=== PATIENT | female | born 1965 | race Caucasian/White ===

== ENCOUNTER 2016-10-09 10:04 | Inpatient (IN) | payer OTHER ==
[~2016-10-09] VITALS: Ht 160 cm; Wt 97.3 kg
[~2016-10-09 10:04] MED LIST: ALBU0.086 INH; CYCL1PAK PO
[2016-10-28] MEDS ORDERED: HYDR-3580 PO (12:11)
[2016-10-28] MEDS ORDERED: VENTAER INH (12:15)
[2016-10-28] MEDS ORDERED: ASPI1TAB69 PO (12:15)
[2016-11-08] MEDS ORDERED: OMEP20TA PO (16:10)
[2016-11-08] MEDS ORDERED: CETI1TAB21 PO (16:10)
[2016-11-08] MEDS ORDERED: PSEU30TA2 PO (16:10)
[2016-11-08] MEDS ORDERED: CALC1TAB12 PO (16:10)
[2016-11-12] MEDS ORDERED: LACTATED RINGER'S 1000 ML IV SCH (06:00)
[2016-11-12] MEDS ORDERED: ceFAZolin 2 GM PREMIX 50 ML IV SCH (06:00)
[2016-11-12] MEDS ORDERED: SODIUM CHLORID 0.9% 500 ML IV SCH (06:00)
[2016-11-12] MEDS ORDERED: INSULIN HUMAN REGULAR 1,000 UNITS/10 ML VIAL SQ PRN (06:00)
[2016-11-12] MEDS ORDERED: VANCOMYCIN 1000 MG/NS 250 ML (for <70 kg) IV SCH ×2 (06:00)
[2016-11-12] MEDS ORDERED: METOPROLOL TARTRATE 25 MG TAB PO PRN (06:00)
[2016-11-12] MEDS: CHLORHEXIDINE GLUCONATE 4% SOLN 120 ML BTL TOP SCH (06:00)
[2016-11-12 06:01] VITALS: BP 142/89; PULSE 68; RESP 18; TEMP 98; O2SAT 97
[2016-11-12] MEDS ORDERED: ACETAMINOPHEN 1000 MG/100 ML VIAL IV ONE (06:44)
[2016-11-12] MEDS ORDERED: FAMOTIDINE 20 MG/2 ML VIAL ONE (06:44)
[2016-11-12] MEDS ORDERED: MIDAZOLAM HCL 2 MG/2 ML VIAL ONE (06:44)
[2016-11-12] MEDS ORDERED: fentaNYL CITRATE 250 MCG/5 ML AMP ONE (06:45)
[2016-11-12] MEDS ORDERED: METOCLOPRAMIDE HCL 10 MG/2 ML VIAL ONE (06:45)
[2016-11-12] MEDS ORDERED: DEXAMETHASONE SOD PHOS 4 MG/ML VIAL ONE (06:45)
[2016-11-12] MEDS: SODIUM CHLORIDE 0.9% IV SCH ×2 (07:00→08:32)
[2016-11-12] MEDS: EXPAREL PERI-ARTICULAR INJECTION (TOTAL VOL. 60 ML) P-ARTICULR SCH ×4 (07:00→08:47)
[2016-11-12] MEDS: TRANEXAMIC ACID IV SCH ×2 (07:00→08:32)
[2016-11-12] MEDS ORDERED: GENTAMICIN SULFATE 80 MG/2 ML VIAL IRRIGATION ONE (08:47)
[2016-11-12] MEDS ORDERED: NALOXONE HCL 0.4 MG/ML AMP IV PRN (10:30)
[2016-11-12] MEDS ORDERED: ONDANSETRON HCL 4 MG/2 ML VIAL IVP PRN (10:30)
[2016-11-12] MEDS ORDERED: SODIUM CHLORIDE 0.9% FLUSH 5 ML FLUSH IVF PRN (10:30)
[2016-11-12] MEDS ORDERED: ACETAMINOPHEN/HYDROcodone 325 MG/10 MG TAB PO PRN (10:30)
[2016-11-12] MEDS ORDERED: MORPHINE SULFATE 4 MG/ML INJ IV PUSH PRN (10:30)
[2016-11-12] MEDS ORDERED: diphenhydrAMINE HCL 25 MG CAP PO PRN (10:30)
--- NOTE | 2016-11-12 10:34 | PD.OP ---
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 Surgeon: Melquiades Villalpando Material Damage Appraiser(s): ZHEN Garcia PA-C The surgical procedure was assisted by my physician assistant loan processor. My P.A. presence was necessary throughout this case for the manipulation and positioning of the surgical extremity. My P.A. was assisting me throughout the duration of this procedure. The skill set of a physician assistant loan processor was medically necessary to complete this procedure. During the surgical case the surgical territory manager was working at the back table and the physician assistant loan processor was directly assisting me. Operation and Findings: 50% Weight bear DRAINS: 7-mm CLAYTON drain. IMPLANTS USED DePuy Corail size [10] collared stem with a size [52] [place] Gription cup, +4 offset 10 posterior lip liner and a [36+1.5] ceramic Biolox ceramic head. DETAILS OF PROCEDURE: This patient has a long history of hip pain. Patient was found to have severe osteoarthritis secondary to previous left acetabular fracture. She has retained hardware.. The patient had radiographic evidence of joint space narrowing with [id number] arthritis and osteophytes around the acetabulum as well as the femoral head. There was also some cystic changes. The patient failed conservative treatment with pain medications, anti-inflammatories, physical therapy, assistive devices including a cane, as well as therapeutic injection of the hip. The patient wished to proceed with surgery and informed consent was obtained. Operative site was marked. I discussed both posterior approach and anterior approach with patient decision was made for posterior approach because of her previous surgery for ORIF acetabulum. Patient was brought to OR and placed on OR table. IV sedation and general anesthesia was administered by anesthesiologist. Patient was positioned lateral on the operating room table and was given IV antibiotics. Time-out procedure was performed. The operative hip and leg were prepped with alcohol followed by Hibiclens and draped in the usual sterile fashion. Clean Air Suite was used for this procedure. The procedure began with a 6-inch incision over the posterolateral thigh. Subcutaneous tissue was dissected with Bovie. The fascia of the iliotibial band was incised. Gluteus muscle was split in line with fibers. Charnley retractor was placed. Piriformis and external rotator muscles were identified and then released from the posterior femur. The hip capsule was incised and sutures were placed to help retract the capsule. At this point the femoral head and neck were identified. With soft tissue protected, oscillating saw was used to make a cut through the femoral neck, the femoral head was now removed. At this point attention was turned to preparation of the acetabulum. The labrum was excised. The acetabulum was sequentially reamed appropriately. Care was taken to maintain appropriate version. One of the screws from the acetabular fixation was in the field of view within the acetabulum after reaming. It did not obstruct cup placement. A trial cup was placed and was found to be a good fit. A [place] cup was now fully impacted into the acetabulum and found to have excellent fit. 2 screws were drilled and placed through the cup. Hole eliminator was now placed. The liner was now impacted into the cup. At this point attention was turned towards preparation of the proximal femur. Retractors were placed around the proximal femur to allow for exposure. A box osteotome was used to remove the lateral cortex of the femoral neck. A broach was used to help lateralize the prosthesis. Canal finder was used to create a path down the canal. Next, the canal was sequentially broached until there was an excellent fit. Calcar planer was placed. A trial head was placed and the hip was reduced. Trial head was now was placed and the hip was found to have excellent stability with good range of motion. The leg lengths were measured under clinically and found to be equal compared to preoperatively. Trial broach was removed. The Corail stem was opened. Stem was fully impacted into the proximal femur in appropriate version. The femoral head was placed. The hip was again reduced. The wound was thoroughly irrigated. Hip capsule, external rotators, and iliotibial band was closed with #1 Vicryl. A drain was placed deep into the wound. Subcutaneous tissue was closed with 3-0 Vicryl and the skin was closed with marques and Dermabond skin closure. The capsule layers were injected with a mixture of saline and bupivicaine. Dressings were applied. The patient was transferred to Recovery Room in stable condition. Melquiades Villalpando MD Nov 12, 2016 10:34
[2016-11-12] MEDS ORDERED: Post-op Orders (for Pharmacy) MISC XX ONE (11:00)
[2016-11-12] MEDS ORDERED: *MEPERIDINE 25 MG INJ VIAL PERIprocedural Use ONLY ONE (11:00)
[2016-11-12] MEDS ORDERED: DO NOT ADM ANY ANTICOAGULANT DRUGS XX PRN (11:00)
[2016-11-12] MEDS ORDERED: HYDR-3366 PO (11:02)
[2016-11-12] MEDS ORDERED: XARE10TA PO (11:03)
[2016-11-12] MEDS ORDERED: *morphine SULFATE 8 MG/ML PERIprocedure ONLY ONE ×3 (11:06→11:38)
--- NOTE | 2016-11-12 11:07 | HHI.FF ---
Face to Face Verification Diagnosis: (1) Status post total hip replacement, left Physical Therapy Gait training, Safety evaluation Hip: Total hip, Protocol: Left, Posterior hip precautions Canvas Knee Splint: When in bed & 2 pillows btw thighs Right LE Weight Bearing: WB as tolerated Left LE Weight Bearing: WB as tolerated Nursing Dressing Changes: Daily dressing change, Xeroform (begin 11/22/16 daily), Coverderm/Primapore I have seen patient Tawny Turcios Dzevgeny on 11/12/16. My clinical findings support the need for the requested home health care services because: Limited ability to care for self I certify that my clinical findings support that this patient is homebound because: Post-op weakness KERVIN LAMAR PA-C Nov 12, 2016 11:06
[2016-11-12] MEDS: LACTATED RINGER'S 1000 ML INJ 1,000 ML IV SCH (11:15)
[2016-11-12] MEDS: MORPHINE SULFATE 30 MG/30 ML PCA IV SCH ×2 (11:59→18:16)
--- NOTE | 2016-11-12 13:20 | RADRPT ---
EXAM DATE/TIME: 11/12/2016 11:13 [facility] COMPARISON: CT ABDOMEN & PELVIS W/O CONTRAST, May 19, 2016, 3:49. INDICATIONS : Post op left hip surgery. MEDICAL HISTORY : Unobtainable. SURGICAL HISTORY : Unobtainable. ENCOUNTER: Initial ACUITY: 1 day PAIN SCORE: 8/10 LOCATION: Left hip. FINDINGS: Internal fixation plate across left hemipelvis with multiple screws is unchanged. Deformity of the le ft acetabulum is stable however there is interim resection of left femoral head and neck with placeme nt of total hip prosthesis which appears to be well-seated CONCLUSION: Left total hip prosthesis well seated Augie Garner MD on November 12, 2016 at 13:18 Board Certified Radiologist. This report was verified electronically.
[2016-11-12] MEDS: ceFAZolin 2 GM PREMIX 50 ML IV SCH ×2 (14:00→20:32)
[2016-11-12 15:00] VITALS: BP 127/73; PULSE 66; RESP 18; TEMP 96.3; O2SAT 99
[2016-11-12] MEDS ORDERED: NEOSTIGMINE 3 MG/3 ML SYR IV ONE (15:03)
[2016-11-12] MEDS ORDERED: ONDANSETRON HCL 4 MG/2 ML VIAL IV PUSH ONE (15:03)
[2016-11-12] MEDS ORDERED: PROPOFOL 200 MG/20 ML AMP IV ONE (15:03)
[2016-11-12] MEDS ORDERED: ALBUTEROL SULFATE 90 MCG/ACT HFA 8 GM INHALER INH PRN (16:45)
[2016-11-12] MEDS ORDERED: PSEUDOEPHEDRINE HCL 30 MG TAB PO PRN (16:45)
[2016-11-12] MEDS: VANCOMYCIN INJ 1,000 MG in SODIUM CHLOR 0.9% 250 ML INJ 250 ML IV SCH (18:07)
[2016-11-12 20:15] VITALS: BP 108/61; PULSE 71; RESP 16; TEMP 98.4; O2SAT 99
[2016-11-12] MEDS: SODIUM CHLORIDE 0.9% FLUSH 5 ML FLUSH IVF SCH (20:32)
[2016-11-12] MEDS: LORATADINE/PSEUDOEPHEDRINE 5 MG/120 MG TAB PO SCH (20:32)
[2016-11-12] MEDS: PANTOPRAZOLE SOD 20 MG DELAYED RELEASE TAB PO SCH (20:32)
[2016-11-12] MEDS: PCA - TOTAL MG MORPHINE DELIVERED PER SHIFT SCH (21:53)
[2016-11-12 23:50] VITALS: BP 133/67; PULSE 71; RESP 16; TEMP 97.8; O2SAT 99
[2016-11-13] MEDS: LACTATED RINGER'S 1000 ML INJ 1,000 ML IV SCH ×3 (01:55→22:02)
[2016-11-13] MEDS: ceFAZolin 2 GM PREMIX 50 ML IV SCH (01:56)
[2016-11-13] MEDS: CHLORHEXIDINE GLUCONATE 4% SOLN 120 ML BTL TOP SCH ×2 (03:42→19:36)
[2016-11-13 03:45] VITALS: BP 122/80; PULSE 74; RESP 16; TEMP 98.2; O2SAT 100
[2016-11-13] MEDS: VANCOMYCIN INJ 1,000 MG in SODIUM CHLOR 0.9% 250 ML INJ 250 ML IV SCH (04:53)
[2016-11-13] MEDS: PCA - TOTAL MG MORPHINE DELIVERED PER SHIFT SCH ×4 (06:00→22:43)
--- NOTE | 2016-11-13 06:55 | PD.ORT.PN ---
Subjective Subjective Remarks Doing well pain control. No new complaints Objective Vitals Vital Signs Date Time Temp Pulse Resp B/P Pulse Ox O2 Delivery O2 Flow Rate FiO2 11/13/16 03:45 98.2 74 16 122/80 100 11/12/16 23:50 97.8 71 16 133/67 99 11/12/16 20:15 98.4 71 16 108/61 99 11/12/16 18:16 16 11/12/16 15:00 96.3 66 18 127/73 99 11/12/16 14:40 97.8 65 16 116/70 99 Nasal Cannula 2 11/12/16 14:00 62 16 115/73 99 Nasal Cannula 2 11/12/16 13:00 58 16 118/74 98 Nasal Cannula 2 11/12/16 12:20 97.6 55 16 115/70 98 Nasal Cannula 2 11/12/16 12:00 56 16 113/67 98 Nasal Cannula 2 11/12/16 11:59 16 11/12/16 11:45 52 16 111/63 99 Nasal Cannula 2 11/12/16 11:30 62 16 101/71 99 Nasal Cannula 2 11/12/16 11:15 56 16 103/60 99 Nasal Cannula 2 11/12/16 11:00 68 16 140/74 98 Nasal Cannula 2 11/12/16 10:55 96.4 92 16 138/99 97 Nasal Cannula 2 I/O 11/12/16 11/12/16 11/12/16 11/13/16 11/13/16 11/13/16 07:00 15:00 23:00 07:00 15:00 23:00 Intake Total 200 ml 462 ml 1195 ml Output Total 490 ml 60 ml 1950 ml Balance -290 ml 402 ml -755 ml Intake Oral 1195 ml IV Total 200 ml 462 ml Output Urine Total 400 ml 1950 ml Drainage Total 90 ml 60 ml # Bowel Movements 0 Imaging Last 72 hours Impressions Hip and Pelvis X-Ray 11/12/16 0000 Signed Impressions: Service Date/Time: Saturday, November 12, 2016 11:13 - CONCLUSION: Left total hip prosthesis well seated Augie Garner MD Objective Remarks Left lower extremity: Clean dry dressings intact. 2 drains intact. Distally neurovascularly intact strong dorsiflexion plantar flexion of foot Assessment & Plan Assessment and Plan Left total hip arthroplasty POD 1 Physical therapy twice a day weightbearing as tolerated with posterior hip precautions Discontinue drain one today and drain two tomorrow with dressing change Begin by mouth pain medications. Discontinue MANAGER PRACTICE 3 PM Plan for discharge tomorrow or Friday - eval for home versus rehabilitation discharge Incentive spirometry KERVIN Montalvo PA-C Nov 13, 2016 06:54
[2016-11-13 07:29] VITALS: BP 114/75; PULSE 84; RESP 16; TEMP 98.4; O2SAT 99
[2016-11-13 08:27] LABS: HEMATOCRIT 31.5 % (35.0-46.0); REVIEW FLAG FINAL
[2016-11-13] MEDS: SODIUM CHLORIDE 0.9% FLUSH 5 ML FLUSH IVF SCH ×2 (09:00→20:27)
[2016-11-13] MEDS: CALCIUM/VITAMIN D 250 MG/125 U TAB PO SCH (10:20)
[2016-11-13] MEDS: ENOXAPARIN SODIUM 30 MG/0.3 ML SYRINGE SQ SCH ×2 (10:20→22:44)
[2016-11-13 12:00] VITALS: BP 105/55; PULSE 76; RESP 20; TEMP 98.1; O2SAT 98
[2016-11-13 15:24] VITALS: BP 122/63; PULSE 80; RESP 19; TEMP 99.2; O2SAT 99
[2016-11-13] MEDS: ACETAMINOPHEN/HYDROcodone 325 MG/10 MG TAB PO PRN ×2 (16:13→20:22)
[2016-11-13 19:45] VITALS: BP 110/55; PULSE 86; RESP 16; TEMP 98.1; O2SAT 96
[2016-11-13] MEDS: LORATADINE/PSEUDOEPHEDRINE 5 MG/120 MG TAB PO SCH (20:20)
[2016-11-13] MEDS: DOCUSATE SODIUM 100 MG CAP PO SCH (20:20)
[2016-11-13] MEDS: PANTOPRAZOLE SOD 20 MG DELAYED RELEASE TAB PO SCH (20:20)
[2016-11-13 23:42] VITALS: BP 109/58; PULSE 89; RESP 16; TEMP 99.3; O2SAT 96
[2016-11-14] MEDS: ACETAMINOPHEN/HYDROcodone 325 MG/10 MG TAB PO PRN ×6 (00:34→22:23)
--- NOTE | 2016-11-14 06:46 | PD.ORT.PN ---
Subjective Subjective Remarks POD 2 s/p left GLORIA doing well. slight pain. out of bed with therapy Objective Vitals Vital Signs Date Time Temp Pulse Resp B/P Pulse Ox O2 Delivery O2 Flow Rate FiO2 11/14/16 06:01 18 11/13/16 23:42 99.3 89 16 109/58 96 11/13/16 19:45 98.1 86 16 110/55 96 11/13/16 15:24 99.2 80 19 122/63 99 11/13/16 13:06 16 11/13/16 12:00 98.1 76 20 105/55 98 11/13/16 07:29 98.4 84 16 114/75 99 I/O 11/13/16 11/13/16 11/13/16 11/14/16 11/14/16 11/14/16 07:00 15:00 23:00 07:00 15:00 23:00 Intake Total 1877 ml 240 ml 480 ml Output Total 2030 ml 120 ml 30 ml 30 ml Balance -153 ml 120 ml 450 ml -30 ml Intake Oral 1195 ml 240 ml 480 ml IV Total 682 ml 0 ml Output Urine Total 1950 ml Drainage Total 80 ml 120 ml 30 ml 30 ml # Voids 3 2 # Bowel Movements 0 0 1 Result Diagram: 11/13/16 0807 Imaging Last 72 hours Impressions Hip and Pelvis X-Ray 11/12/16 0000 Signed Impressions: Service Date/Time: Saturday, November 12, 2016 11:13 - CONCLUSION: Left total hip prosthesis well seated Augie Garner MD Objective Remarks Left lower extremity: Clean dry dressings intact. 1 drain removed. 1 drain intact. +knee brace. dressings clean and dry. NVI Assessment & Plan Assessment and Plan 1) Left total hip arthroplasty POD 2 Physical therapy twice a day weightbearing as tolerated with posterior hip precautions remaining drain DCd today at bedside Plan for discharge Friday - eval for home versus rehabilitation discharge Incentive spirometry Lovenox f/u Samara or [facility]AD in 2 weeks Ar Ramirez Nov 14, 2016 06:46
[2016-11-14] MEDS ORDERED: WALKER WHEELS/F1 MIS (06:47)
[2016-11-14 08:25] VITALS: BP 109/61; PULSE 84; RESP 20; TEMP 98.2; O2SAT 96
[2016-11-14] MEDS: CALCIUM/VITAMIN D 250 MG/125 U TAB PO SCH (09:22)
[2016-11-14] MEDS: DOCUSATE SODIUM 100 MG CAP PO SCH ×2 (09:22→20:34)
[2016-11-14] MEDS: MAGNESIUM HYDROXIDE SUSP 30 ML CUP PO SCH ×2 (09:22→20:34)
[2016-11-14] MEDS: ENOXAPARIN SODIUM 30 MG/0.3 ML SYRINGE SQ SCH ×2 (09:22→22:24)
[2016-11-14] MEDS: SODIUM CHLORIDE 0.9% FLUSH 5 ML FLUSH IVF SCH ×2 (09:25→20:35)
[2016-11-14 12:00] VITALS: BP 94/65; PULSE 82; RESP 20; TEMP 97.7; O2SAT 93
[2016-11-14] MEDS: LACTATED RINGER'S 1000 ML INJ 1,000 ML IV SCH ×2 (13:45→22:24)
[2016-11-14] MEDS: PCA - TOTAL MG MORPHINE DELIVERED PER SHIFT SCH ×3 (14:00→22:24)
[2016-11-14 16:00] VITALS: BP 136/64; PULSE 88; RESP 20; TEMP 99.1; O2SAT 99
[2016-11-14 20:00] VITALS: BP 105/57; PULSE 95; RESP 20; TEMP 99.7; O2SAT 97
[2016-11-14] MEDS: LORATADINE/PSEUDOEPHEDRINE 5 MG/120 MG TAB PO SCH (20:35)
[2016-11-14] MEDS: PANTOPRAZOLE SOD 20 MG DELAYED RELEASE TAB PO SCH (20:35)
[2016-11-15] VITALS: BP 103/55; PULSE 89; RESP 20; TEMP 98.8; O2SAT 97
[2016-11-15] MEDS: ACETAMINOPHEN/HYDROcodone 325 MG/10 MG TAB PO PRN ×2 (02:28→11:01)
[2016-11-15 07:28] VITALS: BP 103/61; PULSE 86; RESP 16; TEMP 97.5; O2SAT 98
--- NOTE | 2016-11-15 08:56 | PD.ORT.PN ---
Subjective Subjective Remarks Doing well pain control. No new complaints Objective Vitals Vital Signs Date Time Temp Pulse Resp B/P Pulse Ox O2 Delivery O2 Flow Rate FiO2 11/15/16 00:00 98.8 89 20 103/55 97 11/14/16 20:00 99.7 95 20 105/57 97 11/14/16 19:04 18 11/14/16 16:00 99.1 88 20 136/64 99 11/14/16 12:00 97.7 82 20 94/65 93 I/O 11/14/16 11/14/16 11/14/16 11/15/16 11/15/16 11/15/16 07:00 15:00 23:00 07:00 15:00 23:00 Intake Total 480 ml 1200 ml 240 ml Output Total 30 ml Balance -30 ml 480 ml 1200 ml 240 ml Intake Oral 480 ml 1200 ml 240 ml Drainage Total 30 ml # Voids 3 3 2 # Bowel Movements 0 0 0 Result Diagram: 11/13/16 0807 Imaging Last 72 hours Impressions Hip and Pelvis X-Ray 11/12/16 0000 Signed Impressions: Service Date/Time: Saturday, November 12, 2016 11:13 - CONCLUSION: Left total hip prosthesis well seated Augie Garner MD Objective Remarks Left lower extremity: Clean dry dressings intact. +knee brace. dressings clean and dry. NVI Assessment & Plan Assessment and Plan 1) Left total hip arthroplasty POD 3 Physical therapy twice a day weightbearing as tolerated with posterior hip precautions Discharged home today with home health care Incentive spirometry Lovenox/ convert to Xarelto at home f/u Samara or [facility] in 2 weeks KERVIN LAMAR PA-C Nov 15, 2016 08:56
[2016-11-15] MEDS: SODIUM CHLORIDE 0.9% FLUSH 5 ML FLUSH IVF SCH (09:29)
[2016-11-15] MEDS: DOCUSATE SODIUM 100 MG CAP PO SCH (09:29)
[2016-11-15] MEDS: MAGNESIUM HYDROXIDE SUSP 30 ML CUP PO SCH (09:29)
[2016-11-15] MEDS: CALCIUM/VITAMIN D 250 MG/125 U TAB PO SCH (09:29)
[2016-11-15 11:00] VITALS: BP 110/58
[2016-11-15] MEDS: ENOXAPARIN SODIUM 30 MG/0.3 ML SYRINGE SQ SCH (11:01)
--- NOTE | 2016-12-26 08:54 | HHI.DS ---
Discharge Summary Admission Date Nov 12, 2016 at 05:23 Discharge Date: Nov 15, 2016 Admitting Diagnosis Post traumatic Osteoarthritis left hip Diagnosis: (1) Status post total hip replacement, left Diagnosis: Principal Procedures Removal of hardware with conversion to total hip replacement left hip with posterior approach PE at Discharge Left lower extremity: Clean dry dressings intact. +knee brace. dressings clean and dry. NVI Hospital Course Patient admitted from outpatient setting with significant post traumatic osteoarthritis of left hip s/p ORIF of left acetabulum fracture. She was admitted for elective total hip replacement of left hip. She tolerated the procedure well. She was admitted to . She was out of bed with slight difficulty on POD 1. Drain was removed POD 2 and dressing changes were initiated. She was hemodynamically stable, pain controlled, and ambulating safely with therapy and fit for discharge home with [facility]. She will remain full weight bearing and observe posterior hip precautions. She will wear her knee brace while in bed. Dressings will be changed daily with primapore and she will add Xeroform on POD 10. She will follow up in office in [address] Pascual or PA. Pt Condition on Discharge: Good Discharge Disposition: Disch w/ Home Health Serv Discharge Instructions Diet Instructions: As Tolerated, No Restrictions Activities You Can Perform: Weight Bearing as Bob Follow up Referrals: Orthopedics - 2 Weeks @ [facility] with Melquiades Pascual MD New Medications: Hydrocodone-Acetaminophen ([place]) 10-325 Mg Tab 1 TAB PO Q4H PRN PAIN #60 Ref 0 TAB Rivaroxaban (Xarelto) 10 Mg Tab 10 MG PO DAILY Blood Clot Prevention #21 Ref 0 TAB Walker with Front Wheels (Walker with Front Wheels) 1 Mis Mis 1 EA .ROUTE DIRECTED #1 Ref 0 EA Continued Medications: Albuterol 18 GM Inh (Ventolin Hfa 18 GM Inh) 90 Mcg/Act Aer 2 PUFF INH Q4-6H PRN SHORTNESS OF BREATH #1 Ref 0 INHALER Aspirin (Aspirin) 81 Mg Tabdr 81 MG PO DAILY TAB Calcium Carbonate-Cholecalciferol (Calcium 500 +D) 500-400 Mg-Unit Tab 0.5 TAB PO DAILY Calcium Supplement Ref 0 TAB Cetirizine-Pseudoephedrine 12 HR (Cetirizine-Pseudoephedrine 12 HR) 5-120 Mg Tab 10 MG PO HS Allergies Ref 0 TAB Omeprazole (Omeprazole) 20 Mg Tab 20 MG PO HS #30 Ref 0 TAB Pseudoephedrine (Pseudoephedrine) 30 Mg Tab 30 MG PO DAILY PRN ALLERGIC REACTION Ref 0 TAB Discontinued Medications: Hydrocodone-Acetaminophen (Hydrocodone-Acetaminophen) 7.5-325 mg Tab 1 TAB PO Q4H PRN PAIN Ref 0 TAB Ar Ramirez Dec 26, 2016 08:54
== END 2016-11-15 12:26 | disposition home or self-care (01) | DRG 470 ==
LOC: HSDI 11-12 05:23 → N06B 11-12 15:08
PROVIDERS: ADMIT Orthopaedic Surgery Orthopaedic Trauma; ATTEND Orthopaedic Surgery Orthopaedic Trauma
PROC: 0SRB03A Replacement of Left Hip Joint with Ceramic Synthetic Substitute, Uncemented, Open Approach (ICD-10-PCS; principal; 2016-11-12 08:03)
DX: M16.52 Unilateral post-traumatic osteoarthritis, left hip (principal); S32.402S Unspecified fracture of left acetabulum, sequela; X58.XXXS Exposure to other specified factors, sequela
CPT/HCPCS: 73502; 85014; 85018; 86077; 86850; 86870; 86900; 86901; 86902; 86920; 86922; C1776; C9290; J0131; J0690; J1100; J1580; J1650; J2175; J2250; J2270; J2405; J2710; J2765; J3010; J3370; J7050; J7120; L1830

== ENCOUNTER → 2016-10-28 | Outpatient (CLI) | payer OTHER ==
[~2016-10-28] MED LIST changes: +ALBU0.08 NEB; +ALBU8I INH; +ALBUAER3 INH; +ALL5TAB5 PO; +ASPI1TAB69 PO; +ASPI81TA82 PO; +CALC-187 PO; +CALC1TAB12 PO; +CEFU1TAB43 PO; +CETI1TAB21 PO; +GNP50LIQ PO; +HYDR-3366 PO; +HYDR-3580 PO; +LEVA750T PO; +LORTA5 PO; +OMEP20TA PO; +PRIL20CA PO; +PROM6.256 PO; +PSEU30TA PO; +PSEU30TA2 PO; +VENTAER INH; +WALKER WHEELS/F1 MIS; +XARE10TA PO
[2016-10-28 10:53] LABS: BLOOD, URINE TRACE (NEG); GLUCOSE,URINE NEG (NEG); KETONE, URINE NEG (NEG); MUCUS URINE FEW /lpf (OCC); NITRITE,URINE NEG (NEG); SQUAMOUS EPITHELIAL CELL URINE 2 /hpf (0-5); URINE COLOR YELLOW (YELLW/STRAW)
[2016-10-28 10:54] LABS: AUTOMATED NEUTROPHIL # 3.7 TH/MM3 (1.8-7.7); BASOPHIL % 0.5 % (0.0-2.0); EOSINOPHIL # 0.2 TH/MM3 (0-0.4); EOSINOPHIL % 2.5 % (0.0-4.0); HEMO FLAGS DIFF FINAL; MEAN CELL VOLUME 86.6 FL (80.0-100.0); MEAN CORPUSCULAR HEMOGLOBIN 29.3 PG (27.0-34.0); MEAN CORPUSCULAR HGB CONC 33.9 % (32.0-36.0); MONO % 7.1 % (0.0-8.0); NEUT % 57.9 % (16.0-70.0); PLATELET COUNT 217 TH/MM3 (150-450); RED BLOOD COUNT 4.28 MIL/MM3 (4.00-5.30); RED CELL DISTRIBUTION WIDTH 14.4 % (11.6-17.2); WHITE BLOOD COUNT 6.3 TH/MM3 (4.0-11.0)
[2016-10-28 10:56] LABS: COMMENT (UR) CULT NOT INDICATED; CULTURE IF INDICATED CULT NOT INDICATED
[2016-10-28 10:57] LABS: APTT (PATIENT) 25.5 SEC (24.3-30.1); INTERNATIONAL NORMALIZED RATIO 0.9 RATIO
[2016-10-28 11:16] LABS: BICARBONATE 30.1 MEQ/L (21.0-32.0); POTASSIUM 4.6 MEQ/L (3.5-5.1)
[2016-10-28 12:58] LABS: MRSA PCR NEGATIVE (NEGATIVE); STAPH AUREUS PCR POSITIVE (NEGATIVE)
--- NOTE | 2016-10-28 14:25 | RADRPT ---
EXAM DATE/TIME: 10/28/2016 11:31 [facility] COMPARISON: CHEST PA & LAT, February 23, 2015, 16:38. INDICATIONS : Evaluate for pneumonia, pneumothorax or communicable disease. Pre op for left hip replacement 11-12-16 MEDICAL HISTORY : bronchitis SURGICAL HISTORY : None. ENCOUNTER: Initial ACUITY: 1 day PAIN SCORE: 0/10 LOCATION: Bilateral chest FINDINGS: PA and lateral views of the chest demonstrate mild hypoinflation of the left hemithorax with respect to the right. No evidence of pneumothorax, consolidation or other abnormality. The cardiomediastinal contours are unremarkable. Osseous structures are intact. CONCLUSION: No acute disease. Vilma Montgomery MD on October 28, 2016 at 12:05 Board Certified Radiologist. This report was verified electronically.
--- NOTE | 2016-10-29 14:06 | EKG ---
Date Performed: 10/28/2016 Time Performed: 11:54:34 PTAGE: 51 years EKG: SINUS BRADYCARDIA BORDERLINE ECG Since PREVIOUS TRACING , no significant change noted DOCTOR: Jerry Lamb Interpretating Date/Time 10/29/2016 13:59:46
== END ==
LOC: CPRE 09:17
PROVIDERS: ATTEND Orthopaedic Surgery Orthopaedic Trauma
DX: Z01.810 Encounter for preprocedural cardiovascular examination (principal); Z01.812 Encounter for preprocedural laboratory examination; M79.609 Pain in unspecified limb; R00.1 Bradycardia, unspecified; Z79.01 Long term (current) use of anticoagulants; Z13.9 Encounter for screening, unspecified
CPT/HCPCS: 36415; 71020; 80048; 81001; 85025; 85610; 85730; 87640; 87641; 93005

== ENCOUNTER 2017-03-12 12:59 | Emergency (ER) | payer OTHER ==
[~2017-03-12] VITALS: Ht 160 cm; Wt 91.0 kg
[~2017-03-12 12:59] MED LIST changes: -ALBU0.08 NEB; -ALBU0.086 INH; -ALBU8I INH; -ALBUAER3 INH; -ALL5TAB5 PO; -ASPI81TA82 PO; -CALC-187 PO; -CEFU1TAB43 PO; -CYCL1PAK PO; -GNP50LIQ PO; -HYDR-3580 PO; -LEVA750T PO; -LORTA5 PO; -PRIL20CA PO; -PROM6.256 PO; -PSEU30TA PO
[2017-03-12 13:02] VITALS: BP 135/76; PULSE 103; RESP 17; TEMP 103; O2SAT 98
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
[2017-03-12] MEDS ORDERED: ACETAMINOPHEN 500 MG CPLT PO ONE (13:30)
[2017-03-12] MEDS ORDERED: SODIUM CHLOR 0.9% 1000 ML INJ 1,000 ML IV ONE (13:30)
[2017-03-12] MEDS ORDERED: RESP: ALBUTEROL 2.5 MG/IPRATROPIUM 0.5 MG NEB (SCH) NEB ONE (13:30)
--- NOTE | 2017-03-12 13:36 | RADHPO ---
EXAM DATE/TIME: 03/12/2017 13:30 [facility] COMPARISON: CHEST PA & LAT, May 04, 2013, 13:58. CHEST PA & LAT, February 23, 2015, 16:38. CHEST PA & LAT, October 28, 2016, 11:31. INDICATIONS : Chest and back pain MEDICAL HISTORY : Bronchitis SURGICAL HISTORY : None. ENCOUNTER: Initial ACUITY: 1 day PAIN SCORE: 9/10 LOCATION: Left posterior chest FINDINGS: There is an asymmetric density in the left lung apex. Mass or infiltrate in this location is not excl uded. Lungs otherwise symmetric and clear. Cardiac contours are grossly stable and satisfactory. CONCLUSION: Left apical density. Zachery Gayle MD on March 12, 2017 at 13:32 Board Certified Radiologist. This report was verified electronically.
[2017-03-12 13:54] VITALS: O2SAT 98
[2017-03-12 13:58] LABS: AUTOMATED NEUTROPHIL # 15.7 TH/MM3 (1.8-7.7); BASOPHIL # 0.5 TH/MM3 (0-0.2); EOSINOPHIL % 0.2 % (0.0-4.0); HEMATOCRIT 40.1 % (35.0-46.0); LYMPH % 5.4 % (9.0-44.0); MEAN CELL VOLUME 82.5 FL (80.0-100.0); MEAN CORPUSCULAR HEMOGLOBIN 28.3 PG (27.0-34.0); MEAN CORPUSCULAR HGB CONC 34.3 % (32.0-36.0); MONO % 4.9 % (0.0-8.0); NEUT % 86.5 % (16.0-70.0); PLATELET COUNT 267 TH/MM3 (150-450); RED BLOOD COUNT 4.86 MIL/MM3 (4.00-5.30); RED CELL DISTRIBUTION WIDTH 14.2 % (11.6-17.2); WHITE BLOOD COUNT 18.1 TH/MM3 (4.0-11.0)
[2017-03-12 13:59] LABS: HEMO FLAGS DIFF FINAL
[2017-03-12 14:00] VITALS: BP 127/73; PULSE 90; RESP 18; O2SAT 97
[2017-03-12 14:06] VITALS: BP 127/73; PULSE 90; RESP 18; TEMP 102.2; O2SAT 97
[2017-03-12 14:08] LABS: CHLORIDE 97 MEQ/L (98-107); POTASSIUM 4.1 MEQ/L (3.5-5.1); SODIUM (NA) 134 MEQ/L (136-145)
[2017-03-12 14:12] LABS: ANION GAP 10 MEQ/L (5-15); BICARBONATE 27.5 MEQ/L (21.0-32.0); BLOOD UREA NITROGEN 14 MG/DL (7-18)
[2017-03-12 14:15] LABS: AST (GOT) 23 U/L (15-37)
[2017-03-12] MEDS ORDERED: cefTRIAXone INJ 1,000 MG in SODIUM CHLORIDE 0.9% INJ 100 ML IV ONE (14:15)
[2017-03-12 14:16] LABS: ALT (GPT) 33 U/L (10-53); GLOMERULAR FILTRATION RATE 48 ML/MIN (>89)
[2017-03-12 14:17] LABS: ALKALINE PHOSPHATASE 121 U/L (45-117); TOTAL BILIRUBIN ADULT 0.9 MG/DL (0.2-1.0)
[2017-03-12] MEDS ORDERED: IOHEXOL 350 MG/ML 10 ML VIAL (for RAD DIAG) IV ONE (14:53)
--- NOTE | 2017-03-12 15:02 | RADHPO ---
EXAM DATE/TIME: 03/12/2017 14:24 [facility] COMPARISON: CHEST SINGLE AP, March 12, 2017, 13:30. INDICATIONS : Left chest pain with shortness of breath. IV CONTRAST: 50 cc Omnipaque 350 (iohexol) IV RADIATION DOSE: 15.22 CTDIvol (mGy) MEDICAL HISTORY : None SURGICAL HISTORY : Hysterectomy. ENCOUNTER: Initial ACUITY: 1 day PAIN SCALE: 5/10 LOCATION: Left chest TECHNIQUE: Volumetric scanning of the chest was performed. Using automated exposure control and adjustment of t he mA and/or kV according to patient size, radiation dose was kept as low as reasonably achievable to obtain optimal diagnostic quality images. FINDINGS: At the left lung apex there is an irregular masslike focus measuring 4.5 x 2.7 cm in transverse and A P dimension. This corresponds to the opacity on the plain radiographs. There is some linear lucency s een within the central portion indicating an area of consolidation, a true mass is felt less likely b ut not entirely excluded. There is no adenopathy. No pleural or pericardial effusions. Osseous struct ures are intact.. CONCLUSION: 1. Abnormal consolidative opacity in the left upper lobe with air bronchogram formation, somewhat mas slike in appearance however felt to represent an area of pneumonia. Followup CT examination after mehdi ropriate clinical therapy is recommended to ensure resolution of this finding. The possibility of mal ignancy is not entirely excluded though felt less likely. Abel Galarza MD on March 12, 2017 at 14:57 Board Certified Radiologist. This report was verified electronically.
[2017-03-12 15:14] LABS: GLUCOSE,URINE NEG (NEG); KETONE, URINE NEG (NEG); NITRITE,URINE NEG (NEG)
[2017-03-12] MEDS ORDERED: AZITHROMYCIN INJ 500 MG in SODIUM CHLOR 0.9% 250 ML INJ 250 ML IV ONE (15:15)
[2017-03-12 15:19] LABS: BLOOD, URINE MOD (NEG)
[2017-03-12 15:22] LABS: METHOD OF COLLECTION CLEAN CATCH; URINE COLOR YELLOW (YELLW/STRAW)
[2017-03-12 15:23] LABS: BACTERIA, URINE OCC /hpf
[2017-03-12 15:24] LABS: COMMENT (UR) CULT NOT INDICATED; CULTURE IF INDICATED CULT NOT INDICATED
[2017-03-12] MEDS ORDERED: ALBUAER3 INH (16:00)
[2017-03-12] MEDS ORDERED: ALBU0.08 NEB (16:00)
[2017-03-12] MEDS ORDERED: PROM6.256 PO (16:00)
[2017-03-12] MEDS ORDERED: LEVA750T PO (16:00)
[2017-03-12 16:23] VITALS: BP 106/57; PULSE 77; RESP 18; TEMP 99.5; O2SAT 98
[2017-03-12] MEDS ORDERED: KETOROLAC TROMETHAMINE 30 MG/ML (IVP) VIAL IV PUSH ONE (17:15)
[2017-03-12 17:35] VITALS: BP 111/66
== END 2017-03-12 17:35 | disposition home or self-care (01) ==
LOC: PHED 12:59
DX: J18.1 Lobar pneumonia, unspecified organism (principal); D72.829 Elevated white blood cell count, unspecified; J45.909 Unspecified asthma, uncomplicated; K21.9 Gastro-esophageal reflux disease without esophagitis; F41.0 Panic disorder [episodic paroxysmal anxiety]; Z79.899 Other long term (current) drug therapy
CPT/HCPCS: 71010; 71260; 80053; 81001; 83605; 85025; 87040; 87804; 94664; 96361; 96365; 96366; 96375; 99285; J0456; J0696; J1885; J7030; J7050; Q9967